=== PATIENT | male | born 1960 | race Caucasian/White ===

== ENCOUNTER 2017-01-26 21:10 | Emergency (ER) | payer BC ==
[~2017-01-26] VITALS: Ht 185.4 cm; Wt 136.6 kg
[~2017-01-26 21:10] MED LIST: FLEXERIL10 MG PO; TYLENOL EXTRA500 MG PO; ULTRAM50 MG PO; ZYRTEC10 M2 PO
[2017-01-26 22:21] LABS: ADD MIUA? YES; BILIRUBIN NEGATIVE; BLOOD NEGATIVE; COLOR YELLOW ((YELLOW)); GLUCOSE (STRIP) NEGATIVE; KETONES NEGATIVE; LEUKOCYTES NEGATIVE; NITRITE NEGATIVE; PROTEIN (STRIP) 30; SPECIFIC GRAVITY 1.023 (1.000-1.030)
[2017-01-26 22:26] LABS: BACTERIA NONE SEEN /HPF; EPITHELIAL CELLS NONE SEEN /HPF; MUCUS 1+ /LPF; RED BLOOD CELLS 0-5 /HPF (0-5); UCUL ADDED? NO; WHITE BLOOD CELLS 0-5 /HPF (0-5)
[2017-01-26 22:50] LABS: HEMATOCRIT 43.5 % (38.0-50.0); MCH 26.1 PG (29.0-34.0); MCHC 32.6 G/DL (30.0-36.0); MEAN PLAT.VOLUME 10.2 uM^3 (9.0-12.4); PLATELET COUNT 324 K/uL (156-360); RBC DIS.WIDTH-CV 13.8 % (11.8-14.6); RBC DIS.WIDTH-SD 39.8 % (39-53); RED BLOOD COUNT 5.44 M/uL (4.00-5.50); WHITE BLOOD COUNT 8.6 K/uL (4.1-10.2)
[2017-01-26 23:02] LABS: CHLORIDE 105 mEq/L (99-109); POTASSIUM 3.9 mEq/L (3.7-5.4); SODIUM 138 mEq/L (136-147)
[2017-01-26 23:04] LABS: GLUCOSE 114 mg/dL (70-99)
[2017-01-26 23:05] LABS: ANION GAP 8 MEQ/L (2-14)
[2017-01-26 23:06] LABS: TOTAL BILIRUBIN 0.8 mg/dL (0.0-1.0)
[2017-01-26 23:07] LABS: ALKALINE PHOSPHATASE 97 IU/L (3-129)
[2017-01-26 23:08] LABS: GFR ESTIMATE (CALCULATED) > 59 mL/min/
[2017-01-26 23:09] LABS: UREA NITROGEN (BUN) 13 mg/dL (9-23)
[2017-01-26 23:11] LABS: LIPASE 31 U/L (1.0-51.0)
[2017-01-26] MEDS ORDERED: CITRATE OF MAG296 ML PO (23:22)
[2017-01-26] MEDS ORDERED: NAPROSYN500 MG PO (23:22)
[2017-01-26] MEDS ORDERED: LIDODERM 5% P1 PATCH TD (23:22)
[2017-01-26 23:24] VITALS: BP 131/79
[2017-01-26] MEDS ORDERED: ULTRACET1 TABLET PO (23:32)
== END 2017-01-26 23:35 | disposition home or self-care (01) ==
LOC: RME 21:10 → EME 21:10 → RME 23:35
PROVIDERS: Physician Assistant Medical
DX: M54.5 Low back pain (principal); K59.00 Constipation, unspecified; W01.0XXA Fall on same level from slipping, tripping and stumbling without subsequent striking against object, initial encounter; Y93.K1 Activity, walking an animal
CPT/HCPCS: 74000; 80053; 81003; 83690; 85027; 99281; 99285; J1885

== ENCOUNTER 2017-05-18 14:06 | Emergency (ER) | payer BC ==
[~2017-05-18] VITALS: Ht 185.4 cm; Wt 141.4 kg
[~2017-05-18 14:06] MED LIST changes: +CITRATE OF MAG296 ML PO; +LIDODERM 5% P1 PATCH TD; +NAPROSYN500 MG PO; +ULTRACET1 TABLET PO
[2017-05-18] MEDS ORDERED: ZOFRAN4 MG PO (17:27)
[2017-05-18] MEDS ORDERED: FLEXERIL5 MG PO (17:28)
[2017-05-18 17:34] VITALS: BP 119/66
== END 2017-05-18 17:35 | disposition home or self-care (01) ==
LOC: EME 14:06
DX: R51 Headache (principal)
CPT/HCPCS: 99281; 99284; J1100; J1200; J2765

== ENCOUNTER 2017-05-19 22:20 | Emergency (ER) | payer BC ==
[~2017-05-19] VITALS: Ht 185.4 cm; Wt 142.4 kg
[~2017-05-19 22:20] MED LIST changes: +FLEXERIL5 MG PO; +ZOFRAN4 MG PO
[2017-05-19 22:23] VITALS: BP 126/96
[2017-05-20] MEDS ORDERED: MAXALT10 MG PO (02:33)
== END 2017-05-20 02:47 | disposition home or self-care (01) ==
LOC: EME 22:20
DX: R51 Headache (principal)
CPT/HCPCS: 70450; 99281; 99284; J2270; J3030; S0020

== ENCOUNTER 2017-11-14 11:15 | Emergency (ER) | payer BC ==
[~2017-11-14] VITALS: Ht 185.4 cm; Wt 139.1 kg
[~2017-11-14 11:15] MED LIST changes: +MAXALT10 MG PO
[2017-11-14] MEDS ORDERED: TRAMADOL HCL50 MG PO (14:14)
[2017-11-14 14:34] VITALS: BP 138/78
== END 2017-11-14 14:47 | disposition home or self-care (01) ==
LOC: EME 11:15
DX: S29.9XXA Unspecified injury of thorax, initial encounter (principal); W01.190A Fall on same level from slipping, tripping and stumbling with subsequent striking against furniture, initial encounter; Z87.19 Personal history of other diseases of the digestive system
CPT/HCPCS: 71046; 99281; 99283